=== PATIENT | female | born 1995 | race Caucasian/White ===

== ENCOUNTER 2024-05-16 13:39 | Emergency (ER) | payer MEDICAID ==
[~2024-05-16] VITALS: Ht 160 cm; Wt 55.0 kg
[2024-05-16] MEDS ORDERED: ONDANSETRON HCL 4MG/2ML INJ IV STA (14:58)
[2024-05-16 17:41] LABS: BASOPHILS % 0.6 % (0.0-2.0); EOSINOPHILS % 0.8 % (0.0-5.0); HEMATOCRIT. 33.1 % (36.0-48.0); HEMOGLOBIN. 10.8 g/dL (12.0-16.0); LYMPHOCYTES % 15.9 % (20.0-50.0); MEAN CORPUSCULAR HEMOGLOBIN 30.5 pg (28.0-32.0); MEAN CORPUSCULAR HGB CONC 32.5 g/dL (31.0-37.0); MEAN CORPUSCULAR VOLUME 93.6 fL (81.0-99.0); MEAN PLATELET VOLUME 8.8 fl (7.4-10.4); MONOCYTES % 3.3 % (2.0-8.0); NEUTROPHILS % 79.4 % (40.0-76.0); PLATELET 198 x1000/uL (130-400); RED BLOOD CELL COUNT 3.54 mill/uL (4.2-5.4); WHITE BLOOD COUNT 5.5 x1000/uL (4.5-11.0)
[2024-05-16 17:48] LABS: CHLORIDE 107 mEq/L (98-107); SODIUM 136 mEq/L (136-145)
[2024-05-16 17:49] LABS: CARBON DIOXIDE 12 mEq/L (21-32)
[2024-05-16 17:50] LABS: PROTHROMBIN TIME 10.9 sec (9.6-11.0)
[2024-05-16 17:54] LABS: GLUCOSE 88 mg/dL (70-105); UREA NITROGEN BLOOD 97 mg/dL (9-23)
[2024-05-16 17:55] LABS: TROPONIN I HIGH SENSITIVITY 9 ng/L (3.0-34)
[2024-05-16 17:56] LABS: ALANINE AMINOTRANSFERASE 8 IU/L (10-49); ALBUMIN 4.6 g/dL (3.2-4.8); BILIRUBIN TOTAL 0.2 mg/dL (0.1-1.0)
[2024-05-16 17:57] LABS: PROTEIN TOTAL 7.2 g/dL (6.0-8.3)
[2024-05-16 17:59] LABS: HCG SCREEN NEGATIVE
[2024-05-16 18:40] LABS: ASPARTATE AMINOTRANSFERASE < 8 IU/L (<34)
[2024-05-16 18:41] LABS: CREATININE 20.1 mg/dL (0.6-1.0)
[2024-05-16] MEDS: SODIUM BICARBONATE 8.4% 1 MEQ/ML 50ML SYR IV NR (19:33)
[2024-05-16] MEDS: DEXTROSE 50% WATER 50ML SYRINGE IV NR (19:35)
[2024-05-16] MEDS: INSULIN REGULAR (HUMULIN R) 1000UNITS/10ML VIAL IV NR (19:39)
[2024-05-16] MEDS: SODIUM POLYSTYRENE SULFONATE 15 G/60 ML BOT PO NR (19:43)
[2024-05-16] MEDS: ONDANSETRON HCL 4MG/2ML INJ IV NR (19:52)
[2024-05-16] MEDS: ALBUTEROL (0.083%) 2.5MG/3ML NEB HHN NR (19:54)
[2024-05-16 20:00] VITALS: PULSE 81; RESP 11; O2SAT 100
[2024-05-16 22:05] LABS: TROPONIN I HIGH SENSITIVITY 17 ng/L (3.0-34)
[2024-05-16] MEDS: HYDRALAZINE 20MG/ML VIAL IV PRN (23:28)
[2024-05-17 00:29] LABS: TROPONIN I HIGH SENSITIVITY 38 ng/L (3.0-34)
[2024-05-17] MEDS ORDERED: CLONIDINE 0.1MG TABLET PO PRN (03:00)
[2024-05-17 04:42] VITALS: BP 133/90; PULSE 110; RESP 13; TEMP 98.3
[2024-05-17 06:07] LABS: BASOPHILS % 0.9 % (0.0-2.0); EOSINOPHILS % 2.1 % (0.0-5.0); HEMATOCRIT. 29.5 % (36.0-48.0); HEMOGLOBIN. 9.6 g/dL (12.0-16.0); LYMPHOCYTES % 27.9 % (20.0-50.0); MEAN CORPUSCULAR HEMOGLOBIN 30.4 pg (28.0-32.0); MEAN CORPUSCULAR HGB CONC 32.5 g/dL (31.0-37.0); MEAN CORPUSCULAR VOLUME 93.5 fL (81.0-99.0); MEAN PLATELET VOLUME 9.4 fl (7.4-10.4); MONOCYTES % 7.4 % (2.0-8.0); NEUTROPHILS % 61.7 % (40.0-76.0); PLATELET 190 x1000/uL (130-400); RED BLOOD CELL COUNT 3.15 mill/uL (4.2-5.4); RED CELL DISTRIBUTION WIDTH 14.4 % (11.6-14.6); WHITE BLOOD COUNT 5.1 x1000/uL (4.5-11.0)
[2024-05-17 06:42] LABS: ALANINE AMINOTRANSFERASE < 7 IU/L (10-49); CALCIUM 8.6 mg/dL (8.7-10.4); CARBON DIOXIDE 13 mEq/L (21-32); CHLORIDE 109 mEq/L (98-107); POTASSIUM 4.5 mEq/L (3.5-5.1); SODIUM 141 mEq/L (136-145)
[2024-05-17 06:48] LABS: ALBUMIN 4.2 g/dL (3.2-4.8); GLUCOSE 82 mg/dL (70-105); UREA NITROGEN BLOOD 93 mg/dL (9-23)
[2024-05-17 06:50] LABS: BILIRUBIN TOTAL 0.2 mg/dL (0.1-1.0); PROTEIN TOTAL 6.3 g/dL (6.0-8.3)
[2024-05-17 06:54] LABS: ASPARTATE AMINOTRANSFERASE < 8 IU/L (<34)
[2024-05-17 07:03] LABS: CREATININE 19.5 mg/dL (0.6-1.0)
[2024-05-17] MEDS ORDERED: HYDRALAZINE HCL 50MG TABLET PO SCH (09:00)
[2024-05-17] MEDS ORDERED: FOLIC ACID/VITAMIN B COMP W-C TABLET PO SCH (09:00)
[2024-05-17] MEDS ORDERED: AMLODIPINE 10MG TABLET PO SCH (09:00)
[2024-05-17] MEDS ORDERED: SEVELAMER CARBONATE 800 MG TABLET PO SCH (09:00)
[2024-05-17] MEDS ORDERED: METOPROLOL TARTRATE 50MG TABLET PO SCH (09:00)
[2024-05-17 11:54] LABS: HEPATITIS B SURFACE ANTIGEN NEGATIVE (Negative)
[2024-05-17 12:15] LABS: HEPATITIS A AB IGM NEGATIVE (Negative); HEPATITIS B CORE AB IGM NEGATIVE (Negative)
[2024-05-17 12:16] LABS: HEPATITIS C AB NON REACTIVE (Neg) (Negative)
== END 2024-05-17 06:55 | disposition left against medical advice (07) ==
LOC: ER 13:45 → EDBEDREQ 20:49 → EDBEDREQTM 20:49 → EDBEDREQSVC 22:24 → CANBEDREQ 05-17 06:48 → ER 05-17 06:55
DX: E87.5 Hyperkalemia (principal); I12.0 Hypertensive chronic kidney disease with stage 5 chronic kidney disease or end stage renal disease; N18.6 End stage renal disease; D64.9 Anemia, unspecified; I10 Essential (primary) hypertension; Z99.2 Dependence on renal dialysis
CPT/HCPCS: 80053 ×2; 84703; 85025 ×2; 85610; 84484; 36415 ×2; 71045; 70450; 93005; 94644; 96374; 96375; 99291; 87340; 86705; 86709; J0360; J1815; J2405; J3490; Z7610 ×2

== ENCOUNTER 2024-05-17 09:43 | Inpatient (IN) | payer MEDICAID ==
[~2024-05-17] VITALS: Ht 312.4 cm; Wt 59.9 kg
[2024-05-17 09:46] VITALS: O2SAT 100
[2024-05-17 10:10] LABS: HEMATOCRIT. 30.8 % (36.0-48.0); HEMOGLOBIN. 10.1 g/dL (12.0-16.0); MEAN CORPUSCULAR HEMOGLOBIN 30.5 pg (28.0-32.0); MEAN CORPUSCULAR HGB CONC 32.9 g/dL (31.0-37.0); MEAN CORPUSCULAR VOLUME 92.9 fL (81.0-99.0); MEAN PLATELET VOLUME 8.8 fl (7.4-10.4); PLATELET 208 x1000/uL (130-400); RED BLOOD CELL COUNT 3.32 mill/uL (4.2-5.4); RED CELL DISTRIBUTION WIDTH 14.6 % (11.6-14.6)
[2024-05-17 10:14] LABS: DIFFERENTIAL COMMENT 1
[2024-05-17 10:18] LABS: POTASSIUM 4.9 mEq/L (3.5-5.1)
[2024-05-17 10:20] LABS: CALCIUM 8.7 mg/dL (8.7-10.4)
[2024-05-17 10:55] LABS: CREATININE 20.5 mg/dL (0.6-1.0)
[2024-05-17 12:31] LABS: PLATELET ESTIMATE NORMAL
[2024-05-17] MEDS ORDERED: ACETAMINOPHEN 325MG TABLET PO PRN (16:00)
[2024-05-17] MEDS ORDERED: DEXTROSE 50% WATER 50ML SYRINGE IV PRN (16:00)
[2024-05-17] MEDS ORDERED: IPRATROPIUM/ALBUTEROL 0.5-3(2.5)MG/3ML NEB HHN PRN (16:00)
[2024-05-17] MEDS ORDERED: DOCUSATE SODIUM 100MG CAPSULE PO PRN (16:00)
[2024-05-17] MEDS: SODIUM BICARBONATE 8.4% 1 MEQ/ML 50ML SYR IV NR (16:59)
[2024-05-17] MEDS: CLONIDINE 0.1MG TABLET PO PRN (16:59)
[2024-05-17] MEDS: BLOOD SUGAR DIAGNOSTIC STRIP TEST SCH (18:03)
[2024-05-17] MEDS: INSULIN LISPRO 100 UNITS/ML SUBCUT SCH (18:04)
[2024-05-17 18:36] LABS: PROTHROMBIN TIME 11.3 sec (9.6-11.0)
[2024-05-17 18:42] LABS: CREATINE KINASE MB FRACTION 2.2 ng/mL (0.5-3.6)
[2024-05-17] MEDS: FUROSEMIDE 40MG/4ML VIAL IVP NR (20:34)
[2024-05-17] MEDS: HYDRALAZINE HCL 25MG TABLET PO SCH (22:09)
[2024-05-18] VITALS (12 sets, daily range): BP systolic 109–200; BP diastolic 73–121; PULSE 54–85; RESP 16–20; TEMP 97.2–97.8
[2024-05-18] MEDS: ACETAMINOPHEN 325MG TABLET PO PRN (03:52)
[2024-05-18] MEDS: ONDANSETRON HCL 4MG/2ML INJ IV PRN (03:57)
[2024-05-18 06:43] LABS: BASOPHILS % 0.7 % (0.0-2.0); EOSINOPHILS % 1.7 % (0.0-5.0); HEMATOCRIT. 28.3 % (36.0-48.0); HEMOGLOBIN. 9.3 g/dL (12.0-16.0); LYMPHOCYTES % 12.3 % (20.0-50.0); MEAN CORPUSCULAR HEMOGLOBIN 30.3 pg (28.0-32.0); MEAN CORPUSCULAR HGB CONC 32.8 g/dL (31.0-37.0); MEAN CORPUSCULAR VOLUME 92.2 fL (81.0-99.0); MEAN PLATELET VOLUME 9.5 fl (7.4-10.4); MONOCYTES % 4.1 % (2.0-8.0); NEUTROPHILS % 81.2 % (40.0-76.0); PLATELET 180 x1000/uL (130-400); RED BLOOD CELL COUNT 3.07 mill/uL (4.2-5.4); RED CELL DISTRIBUTION WIDTH 14.6 % (11.6-14.6); WHITE BLOOD COUNT 6.6 x1000/uL (4.5-11.0)
[2024-05-18 07:20] LABS: CHLORIDE 107 mEq/L (98-107); POTASSIUM 4.7 mEq/L (3.5-5.1); SODIUM 142 mEq/L (136-145)
[2024-05-18 07:22] LABS: CARBON DIOXIDE 13 mEq/L (21-32)
[2024-05-18 07:23] LABS: CALCIUM 8.3 mg/dL (8.7-10.4)
[2024-05-18 07:26] LABS: TRIGLYCERIDE 180 mg/dL (0-150)
[2024-05-18 07:28] LABS: GLUCOSE 86 mg/dL (70-105); UREA NITROGEN BLOOD 94 mg/dL (9-23)
[2024-05-18 07:29] LABS: ALANINE AMINOTRANSFERASE < 7 IU/L (10-49); ALBUMIN 4.2 g/dL (3.2-4.8); LDL CHOLESTEROL 116 mg/dL (5-100)
[2024-05-18 07:30] LABS: BILIRUBIN DIRECT < 0.1 mg/dL (<=3.0); BILIRUBIN TOTAL < 0.2 mg/dL (0.1-1.0); CHOLESTEROL 189 mg/dL (<200); CREATININE 20.8 mg/dL (0.6-1.0); HDL CHOLESTEROL 44 mg/dL (>65); PROTEIN TOTAL 6.3 g/dL (6.0-8.3)
[2024-05-18 07:31] LABS: ASPARTATE AMINOTRANSFERASE < 8 IU/L (<34)
[2024-05-18] MEDS: FUROSEMIDE 40MG/4ML VIAL IVP SCH (08:28)
[2024-05-18 16:19] LABS: CREATINE KINASE MB FRACTION 1.4 ng/mL (0.5-3.6)
[2024-05-18 16:32] LABS: HEPATITIS B SURFACE ANTIGEN NEGATIVE (Negative)
[2024-05-18] MEDS: HYDRALAZINE 20MG/ML VIAL IV PRN (16:39)
[2024-05-18 16:52] LABS: HEPATITIS A AB IGM NEGATIVE (Negative)
[2024-05-18 16:53] LABS: HEPATITIS B CORE AB IGM NEGATIVE (Negative); HEPATITIS C AB NON REACTIVE (Neg) (Negative)
[2024-05-19] VITALS: BP 127/78; PULSE 86; RESP 19; TEMP 98.5
[2024-05-19 04:00] VITALS: BP_SYST 135; BP_SYST 140; BP_DIAS 89; BP_DIAS 98; PULSE 85; PULSE 89; RESP 19; RESP 20; TEMP 97.6; TEMP 98.2
[2024-05-19 08:00] VITALS: BP 130/87; PULSE 92; RESP 20; TEMP 98.1
[2024-05-19] MEDS: BUTALBITAL/ACETAMINOPHEN/CAFFEINE 50/325/40MG TABLET PO PRN (14:15)
[2024-05-19] MEDS: CALCIUM ACETATE 667MG CAPSULE PO SCH (14:20)
[2024-05-20] MEDS ORDERED: FOLIC ACID/VITAMIN B COMP W-C TABLET PO SCH (09:00)
== END 2024-05-19 18:28 | disposition home or self-care (01) | DRG 425 ==
LOC: ER 09:43 → 5WST 13:44 → 7EST 05-18 07:57
PROVIDERS: ADMIT Internal Medicine; ATTEND Internal Medicine
DX: E87.70 Fluid overload, unspecified (principal); I12.0 Hypertensive chronic kidney disease with stage 5 chronic kidney disease or end stage renal disease; E87.20 Acidosis, unspecified; I24.9 Acute ischemic heart disease, unspecified; D63.1 Anemia in chronic kidney disease; N18.6 End stage renal disease; Z99.2 Dependence on renal dialysis; E87.5 Hyperkalemia
CPT/HCPCS: 36415; 71045; 80048; 80061; 80076; 82550; 82553; 82962; 83036; 83880; 84484; 85025; 86705; 86709; 87340; 90935; 93005; 93306; 99285; J0360; J1940; J2405; J3490

== ENCOUNTER 2024-12-26 11:59 | Emergency (ER) | payer MEDICAID ==
[~2024-12-26] VITALS: Ht 149.9 cm; Wt 50.8 kg
[~2024-12-26 11:59] MED LIST: AMOX1TAB15 MT
[2024-12-26 12:02] VITALS: TEMP 37.1; O2SAT 100
[2024-12-26 12:54] LABS: BASOPHILS % 0.6 % (0.0-2.0); DIFFERENTIAL COMMENT 0; EOSINOPHILS % 1.9 % (0.0-5.0); LYMPHOCYTES % 26.7 % (20.0-50.0); MEAN CORPUSCULAR HEMOGLOBIN 29.6 pg (28.0-32.0); MEAN CORPUSCULAR HGB CONC 33.4 g/dL (31.0-37.0); MEAN CORPUSCULAR VOLUME 88.8 fL (81.0-99.0); MEAN PLATELET VOLUME 9.5 fl (7.4-10.4); MONOCYTES % 4.8 % (2.0-8.0); PLATELET 156 x1000/uL (130-400); RED BLOOD CELL COUNT 2.07 mill/uL (4.2-5.4); RED CELL DISTRIBUTION WIDTH 13.8 % (11.6-14.6); WHITE BLOOD COUNT 4.5 x1000/uL (4.5-11.0)
[2024-12-26 13:05] LABS: CALCIUM 8.5 mg/dL (8.7-10.4); POTASSIUM 4.3 mEq/L (3.5-5.1)
[2024-12-26 13:27] LABS: HEMATOCRIT. 18.4 % (36.0-48.0); HEMOGLOBIN. 6.1 g/dL (12.0-16.0)
[2024-12-26 14:02] LABS: CREATININE 5.8 mg/dL (0.6-1.0)
[2024-12-26 21:10] VITALS: BP 149/79; PULSE 88; RESP 14; O2SAT 99
== END 2024-12-26 21:12 | disposition home or self-care (01) ==
LOC: ER 11:59 → CANBEDREQ 17:05 → ER 21:12
DX: D64.9 Anemia, unspecified (principal); I12.0 Hypertensive chronic kidney disease with stage 5 chronic kidney disease or end stage renal disease; N18.6 End stage renal disease; Z88.6 Allergy status to analgesic agent; Z99.2 Dependence on renal dialysis
CPT/HCPCS: 80048; 85025; 86850; 86900; 86901; 86920; 36415; 99285; Z7610 ×2; 36430; P9016